=== PATIENT | female | born 1975 | race Caucasian/White ===

== ENCOUNTER 2016-09-13 16:31 | Emergency (ER) | payer OTHER ==
--- NOTE | ~2016-09-13 | CT4 ---
[facility] A Service of [facility] / [facility] RADIOLOGY TEXT RESULTS PATIENT: STEFANIA GARCIA LOCATION: [facility] : 79 UNIT #: [id number] AGE: [address]: Johnny Gilliam DO SEX: F ORDER DR: [id number] [facility] [address] [place], [place] [address] [id number] E MR#: [id number] Acc #: [id number] NAME: STEFANIA GARCIA : 1975 SEX: F STUDY DATE/TIME: 09/13/2016 21:49 UNIT: [facility] ROOM: STUDY DESCRIPTION: CT Abd and Pelv Wo Cont Attending Physician: Johnny Gilliam D.O. Ordering Physician: Johnny Gilliam D.O. MEDICAL IMAGING REPORT This report is preliminary unless electronic signature is present EXAM Abdomen and pelvis CT, no contrast, 09/13/2016 INDICATIONS 41-year-old female with abdominal cramping, clinical concern for dehydration. History of alcohol abuse. Sent for IV fluids today. Cramping in the abdomen for 2 days. History of cholecystectomy. TECHNIQUE Noncontrast abdomen and pelvis CT was performed. There are no comparisons. This CT exam was performed with one or more of the following radiation dose reduction techniques: Automatic exposure control, adjustment of mA and/or kV according to patient size, and iterative reconstruction. FINDINGS CT ABDOMEN: There is motion degradation. Exam degraded by noncontrast technique. There is pulmonary hyperinflation, no effusion. There is wall thickening of the distal esophagus extending to the GE junction. Correlate with any sign or symptom of esophagitis. It would be impossible to exclude an underlying circumferential mass and this could be best further assessed with upper endoscopy, if not recently performed. Aorta demonstrates no aneurysm. There are granulomatous changes of the spleen, and the adrenal glands are unremarkable. The pancreas is not well visualized or assessed. Gallbladder is surgically absent. Liver unremarkable. Kidneys demonstrate no hydronephrosis. There are nonobstructing stones in the left kidney measuring up to about 2-[address] PELVIS: Bladder unremarkable. No drainable fluid collection in the pelvis or free fluid. Stool burden in the colon suggests constipation but there is no distinct bowel obstruction. Appendix not identified but no secondary sign of inflammatory change or appendicitis in the right lower quadrant. Inguinal canals are unremarkable. No free air. No suspicious STS. [facility] A Service of [facility] / [facility] RADIOLOGY TEXT RESULTS PATIENT: STEFANIA GARCIA LOCATION: [facility] : 79 UNIT #: [id number] AGE: [address]: Johnny Gilliam DO SEX: F ORDER DR: bone lesion. There is mild levoscoliosis. IMPRESSION 1. There is nonspecific wall thickening of the distal esophagus. This may reflect esophagitis. Circumferential mass could present similarly and is not excluded. Upper endoscopy would be complementary for further assessment. 2. There are nonobstructing stones in the left kidney measuring up to 2-3 mm. 3. The examination otherwise demonstrates findings most characteristic of constipation but no bowel obstruction, drainable fluid collection, or focal area of inflammatory change. 4. Gallbladder surgically absent. 5. If not mentioned above, the appendix is not identified but there is no secondary sign of appendicitis. Dictated by... Zhao Pérez M.D. THIS IS AN ELECTRONICALLY VERIFIED REPORT Zhao Pérez M.D. at 09/14/2016 2:37 PM XIMENA/trice TD: 09/13/2016 23:59 JOB #: [id number] MEDICAL IMAGING REPORT Page 1 of 1 COPY
[2016-09-13 17:17] LABS: URINE SOURCE CLEAN CATCH
[2016-09-13 17:25] LABS: URINE APPEARANCE CLEAR; URINE BILIRUBIN NEG (NEG); URINE BLOOD NEG (NEG); URINE COLOR YELLOW; URINE GLUCOSE NEG (NEG); URINE KETONE NEG (NEG); URINE LEUKOCYTE ESTERASE TRACE (NEG); URINE NITRATE NEG (NEG); URINE PH 8.5 (5-8); URINE PROTEIN NEG (NEG); URINE SPECIFIC GRAVITY 1.008 (1.003-1.035); URINE UROBILINOGEN 0.2 MG/DL (NEG)
[2016-09-13 17:27] LABS: CULTURE INDICATED? YES; U HYALINE CASTS AUWI 0-2 /[LPF]; URINE BACTERIA AUWI 2+ (NEGATIVE); URINE SQUAMOUS EPITHELIAL CELL OCC /[HPF]
[2016-09-13 17:48] LABS: BASOPHIL# 0.1 X10e3 (0-0.3); BASOPHIL% 1.1 % (0-2.5); EOSINOPHIL# 0.2 X10e3 (0-0.7); EOSINOPHIL% 3.7 % (0.0-7.0); HEMATOCRIT 37.6 % (35.0-45.0); HEMOGLOBIN 12.2 gm/dL (12.0-16.0); LYMPHOCYTE# 2.3 X10e3 (1.0-3.5); LYMPHOCYTE% 38.1 % (17.0-45.0); MEAN CELL VOLUME 85.4 FL (83-96); MEAN CORPUSCULAR HEMOGLOBIN 27.7 PG (28-34); MEAN CORPUSCULAR HGB CONC 32.5 g/dL (30-36); MONOCYTE# 0.8 X10e3 (0-1.0); MONOCYTE% 13.6 % (3.0-12.0); NEUTROPHIL# 2.7 X10e3 (1.5-7.1); NEUTROPHIL% 43.5 % (40-75); PLATELET COUNT 221 X10e3 (140-420); RED BLOOD COUNT 4.41 X10e (3.90-5.30); RED CELL DISTRIBUTION WIDTH 20.1 % (11.0-15.5); WHITE BLOOD COUNT 6.1 X10e3 (4.0-10.5)
[2016-09-13 17:49] LABS: DIFF IND NO
[2016-09-13 18:14] LABS: ALKALINE PHOSPHATASE 85 U/L (32-92); ALT (SGPT) 65 U/L (10-40); AST (SGOT) 62 U/L (10-42); BILIRUBIN,TOTAL 0.8 mg/dL (0.2-2.0); BLOOD UREA NITROGEN 25 mg/dL (9-23); BUN/CREATININE RATIO 16.66; CALCIUM SERUM 11.2 mg/dL (8.4-10.2); CARBON DIOXIDE 43 mmol/L (22-31); CHLORIDE 84 mmol/L (100-111); CREATININE SERUM 1.5 mg/dL (0.6-1.4); GLOM FILT RATE Estimated 43.5 mL/min (>60); GLUCOSE FASTING 133 mg/dL (70-110); LIPASE 24 U/L (22-51); SODIUM 135 mmol/L (135-145)
[2016-09-13 18:19] LABS: BILIRUBIN, DIRECT <0.1 mg/dL (0.0-0.2); BILIRUBIN,INDIRECT 0.7 mg/dL (0.0-0.9)
[2016-09-13 21:25] LABS: AMPHETAMINE NEG (NEG); BARBITURATES NEG (NEG); BENZODIAZEPINES POS (NEG); COCAINE NEG (NEG); MARIJUANA NEG (NEG); OPIATES NEG (NEG); TRICYCLIC ANTIDEPRESSANTS POS (NEG); U METHADONE NEG (NEG)
[2016-09-14 00:47] LABS: ARTERIAL BLD GAS O2 SATURATION 93.1 % (90.0-100.0); ARTERIAL BLOOD GAS CARBOXY HB 2.8 %sat (0.0-9.0); ARTERIAL BLOOD GAS HCO3 36.6 mmol/L; ARTERIAL BLOOD GAS MET HB 0.5 %sat (0.0-2.0); ARTERIAL BLOOD GAS pH 7.457 (7.350-7.450)
[2016-09-14 00:48] LABS: ARTERIAL BLOOD GAS ALLEN TEST NORMAL; ARTERIAL BLOOD GAS ART SITE RIGHT RADIAL; ARTERIAL BLOOD GAS DELIVERY ROOM AIR; ARTERIAL BLOOD GAS PCO2 51.9 mmHg (35.0-45.0); ARTERIAL BLOOD GAS PO2 77.7 mmHg (80.0-100); ARTERIAL DRAW? YES
== END 2016-09-14 03:00 | disposition home or self-care (01) ==
LOC: CED 16:31 → SED 21:14 → CED 21:14
PROVIDERS: Emergency Medicine
DX: K59.00 Constipation, unspecified (principal); E87.5 Hyperkalemia; E86.0 Dehydration; F17.200 Nicotine dependence, unspecified, uncomplicated; Z90.49 Acquired absence of other specified parts of digestive tract
CPT/HCPCS: 36415; 36600; 74176; 80048; 80076; 80307; 81003; 82803; 83690; 83735; 84484; 84703; 85025; 87086; 96361; 96374; 96375; 99284; C9113; J2405